=== PATIENT | female | born 1990 | race Caucasian/White ===

== ENCOUNTER 2016-07-22 23:19 | Emergency (ER) | payer OTHER ==
[~2016-07-22] VITALS: Ht 170.2 cm; Wt 59.5 kg
[2016-07-22 23:36] LABS: HEMATOCRIT 40.9 % (36.0-46.0); MCH 31.5 PG (29.0-34.0); MCHC 35.2 G/DL (30.0-36.0); MCV 89.5 FL (83-99); MEAN PLAT.VOLUME 8.8 uM^3 (9.5-12.4); PLATELET COUNT 282 K/uL (156-360); RBC DIS.WIDTH-CV 12.7 % (11.8-14.6); RBC DIS.WIDTH-SD 40.9 % (39-53); RED BLOOD COUNT 4.57 M/uL (3.80-5.20); WHITE BLOOD COUNT 9.2 K/uL (4.1-10.2)
[2016-07-22 23:47] LABS: CHLORIDE 108 mEq/L (99-109); POTASSIUM 4.7 mEq/L (3.7-5.4); SODIUM 140 mEq/L (136-147)
[2016-07-22 23:49] LABS: GLUCOSE 89 mg/dL (70-99)
[2016-07-22 23:50] LABS: ANION GAP 10 MEQ/L (2-14)
[2016-07-22 23:51] LABS: TOTAL BILIRUBIN 0.2 mg/dL (0.0-1.0)
[2016-07-22 23:52] LABS: ALKALINE PHOSPHATASE 65 IU/L (3-129)
[2016-07-22 23:53] LABS: GFR ESTIMATE (CALCULATED) > 59 mL/min/
[2016-07-22 23:54] LABS: UREA NITROGEN (BUN) 13 mg/dL (9-23)
[2016-07-23 00:01] LABS: QUANTITATIVE HCG < 4.0 MIU/ML
[2016-07-23 00:21] LABS: DIRECT BILIRUBIN 0.1 mg/dL (0.0-0.3); LIPASE 57 U/L (1.0-51.0)
[2016-07-23 01:52] LABS: ADD MIUA? NO; BILIRUBIN NEGATIVE; BLOOD NEGATIVE; COLOR YELLOW ((YELLOW)); GLUCOSE (STRIP) NEGATIVE; KETONES TRACE; LEUKOCYTES NEGATIVE; NITRITE NEGATIVE; PH, URINE 5.5 (5-8); PROTEIN (STRIP) NEGATIVE; UCUL ADDED? NO; UROBILINOGEN 0.2 MG/DL (0.2-1.0)
[2016-07-23] MEDS ORDERED: ZOFRAN4 MG PO (02:01)
[2016-07-23 02:25] VITALS: BP 120/75
== END 2016-07-23 02:28 | disposition home or self-care (01) ==
LOC: EME 23:19
DX: R10.12 Left upper quadrant pain (principal); R11.2 Nausea with vomiting, unspecified; E86.0 Dehydration; F17.200 Nicotine dependence, unspecified, uncomplicated; Z88.6 Allergy status to analgesic agent
CPT/HCPCS: 74177; 80053; 81003; 82248; 83690; 84702; 85027; 99281; 99285; J2270; J2405; J7030

== ENCOUNTER 2017-09-13 16:30 | Emergency (ER) | payer OTHER ==
[2017-09-13] VITALS (8 sets, daily range): BP systolic 119–129; BP diastolic 65–82
[~2017-09-13] VITALS: Ht 170.2 cm; Wt 70.4 kg
[~2017-09-13 16:30] MED LIST: ZOFRAN4 MG PO
[2017-09-13] MEDS ORDERED: CELEXA20 MG PO (17:34)
[2017-09-13] MEDS ORDERED: PERCOCET 5/31 TABLET PO (17:37)
[2017-09-13] MEDS ORDERED: FLEXERIL10 MG PO (17:37)
[2017-09-13 18:22] LABS: AMPHETAMINE NEGATIVE (500 ng/mL); BARBITURATES NEGATIVE (200 ng/mL); BENZODIAZEPINES NEGATIVE (150 ng/mL); BUPRENORPHINE NEGATIVE (10 ng/mL); COCAINE NEGATIVE (150 ng/mL); METHADONE NEGATIVE (200 ng/mL); METHAMPHETAMINE NEGATIVE (500 ng/mL); OPIATES (MORPHINE) PRESUMPTIVE POSITIVE (100 ng/mL); OXYCODONE NEGATIVE (100 ng/mL); PHENCYCLIDINE NEGATIVE (25 ng/mL); PROPOXYPHENE NEGATIVE (300 ng/mL); THC CANNABINOIDS NEGATIVE (50 ng/mL); TRICYCLIC ANTIDEPRESSANTS PRESUMPTIVE POSITIVE (300 ng/mL)
[2017-09-13 18:24] LABS: BASOPHIL (%) 0.3 % (0-1); EOSINOPHIL (%) 0.3 % (0-5); HEMATOCRIT 31.1 % (36.0-46.0); IMMATURE GRANULOCYTE (%) 0.4 % (0.0-0.7); LYMPHOCYTE (%) 25.8 % (15-42); LYMPHOCYTE COUNT 2.5 K/uL (1.0-2.8); MCH 27.3 PG (29.0-34.0); MCHC 32.2 G/DL (30.0-36.0); MONOCYTE (%) 8.1 % (3-12); MONOCYTE COUNT 0.8 K/uL (0-0.8); NEUTROPHIL (%) 65.1 % (45-76); NEUTROPHIL COUNT 6.4 K/uL (1.8-6.4); PLATELET COUNT 294 K/uL (156-360); RBC DIS.WIDTH-CV 12.2 % (11.8-14.6); RBC DIS.WIDTH-SD 37.9 % (39-53); RED BLOOD COUNT 3.66 M/uL (3.80-5.20); WHITE BLOOD COUNT 9.8 K/uL (4.1-10.2)
[2017-09-13 18:34] LABS: ALBUMIN 3.5 G/DL (3.2-4.8); CHLORIDE 109 MEQ/L (99-109); POTASSIUM 4.1 MEQ/L (3.7-5.4); SODIUM 138 MEQ/L (136-147); TOTAL BILIRUBIN 0.2 MG/DL (0.0-1.0)
[2017-09-13 18:40] LABS: ALKALINE PHOSPHATASE 117 IU/L (3-129); ALT (GPT) 7 IU/L (3-49); AST (GOT) 9 IU/L (2-34); CREATININE 0.5 MG/DL (0.6-1.3); GFR ESTIMATE (CALCULATED) > 59 mL/min/; GLUCOSE 79 mg/dL (70-99); TOTAL PROTEIN 5.9 G/DL (6.4-8.3); UREA NITROGEN (BUN) 10 mg/dL (9-23)
[2017-09-13 19:13] LABS: GROUP B STREP POSITIVE (NEGATIVE)
[2017-09-13 20:56] LABS: CANDIDA DNA PROBE NEGATIVE; GARDNERELLA DNA PROBE NEGATIVE; TRICHOMONAS DNA PROBE NEGATIVE
[2017-09-13] MEDS ORDERED: VENTOLIN HFA18 GM IH (21:33)
[2017-09-13] MEDS ORDERED: COMBIVENT RESPIM4 GM IH (21:34)
[2017-09-13] MEDS ORDERED: VITAFOL-OB+DHA1 EACH PO (21:35)
[2017-09-13 23:50] LABS: TROP-I INTERPRETATION NEGATIVE; TROPONIN-I < 0.01 ng/mL (0.0-0.30)
[2017-09-14 05:10] LABS: APPEARANCE CLOUDY ((CLEAR)); BILIRUBIN NEGATIVE; BLOOD NEGATIVE; COLOR YELLOW ((YELLOW)); GLUCOSE (STRIP) NEGATIVE; KETONES 80; LEUKOCYTES SMALL; NITRITE NEGATIVE; PROTEIN (STRIP) 30; SPECIFIC GRAVITY 1.024 (1.000-1.030); UROBILINOGEN 0.2 MG/DL (0.2-1.0)
[2017-09-14 05:46] LABS: EPITHELIAL CELLS 1+ /HPF; RED BLOOD CELLS NONE SEEN /HPF (0-5); WHITE BLOOD CELLS 0-5 /HPF (0-5)
[2017-09-14 05:47] LABS: BACTERIA 1+ /HPF; MUCUS 1+ /LPF; UCUL ADDED? NO
[2017-09-14] MEDS ORDERED: ZOFRAN ODT4 MG PO (06:07)
[2017-09-14 06:22] VITALS: BP 133/82
== END 2017-09-14 06:25 | disposition left against medical advice (07) ==
LOC: EME 16:30 → LDRP-OP 16:30 → EME 16:30 → 2WEST 16:31 → LDRP-OP 16:31 → EDSTATUS 22:58 → EME 09-14 06:25
PROVIDERS: Advanced Practice Midwife; Emergency Medicine
DX: O26.893 Other specified pregnancy related conditions, third trimester (principal); R10.10 Upper abdominal pain, unspecified; R11.2 Nausea with vomiting, unspecified; O60.03 Preterm labor without delivery, third trimester; Z3A.35 35 weeks gestation of pregnancy; O99.843 Bariatric surgery status complicating pregnancy, third trimester; O99.333 Smoking (tobacco) complicating pregnancy, third trimester; F17.200 Nicotine dependence, unspecified, uncomplicated
CPT/HCPCS: 59025; 71045; 76705; 76815; 80053; 81003; 83690; 84484; 84999; 85025; 86850; 86900; 86901; 87081; 87086; 87480; 87510; 87653; 87660; 93005; 99281; 99285; J0595; J0702; J2270; J2765; J3010; J3105; J7120